=== PATIENT | male | born 1945 | race African-American/Black ===

== ENCOUNTER 2017-01-07 09:26 | Emergency (ER) | payer OTHER ==
[~2017-01-07] VITALS: Ht 172.7 cm; Wt 79.2 kg
[~2017-01-07 09:26] MED LIST: ATEN-100 PO; BABY81CH PO; CIPR500T2 PO; SPIR25TA PO
[2017-01-07 09:36] VITALS: BP 150/80; PULSE 98; RESP 16; TEMP 98.3; O2SAT 97
--- NOTE | 2017-01-07 09:42 | PD ---
HPI Chief Complaint: Musculoskeletal Complaint Time Seen by Provider: 09:31 Travel History International Travel<30 days: No Contact w/Intl Traveler<30days: No Traveled to known affect area: No History of Present Illness HPI PER PATIENT APPARENTLY LEFT FOOT WAS PLANTED WHEN HIS BODY TWISTED ABOUT, NO MAJOR BLUNT TRAUMA, BUT SINCE THAT TWISTING KNEE INCIDENT HE HAS HAD PAIN, SHARP , NONRAD, 01/09 , WORSENED WITH WEIGHT BEARING, ON HIS LEFT KNEE (HE HAD TONE KNEE REPLACEMENT IN 2003). NO OTHER COMPLAINT AT THIS TIME [facility] Past Medical History Hypertension: Yes Past Surgical History Abdominal Surgery: Yes (HERNIA REPAIR) Social History Alcohol Use: No Tobacco Use: No Substance Use: No Allergies-Medications (Allergen,Severity, Reaction): Coded Allergies: No Known Allergies (Verified , 01/07/17) Reported Meds & Prescriptions Reported Meds & Active Scripts Active Lortab (Hydrocodone-Acetaminophen) 7.5-325 Mg Tab 1 Tab PO Q6H PRN Reported Magnesium Oxide 400 Mg Tab 400 Mg PO DAILY Vitamin D3 (Cholecalciferol) 2,000 Unit Cap 2,000 Units PO DAILY Calcium Carbonate 1,250 Mg Tab 1,250 Mg PO DAILY 1,250 mg calcium carbonate (500 mg elemental calcium) Spironolactone 50 Mg Tab 50 Mg PO DAILY Lisinopril 40 Mg Tab 50 Mg PO DAILY Carvedilol 6.25 Mg Tab 6.25 Mg PO BID Aspirin 81 Mg Chew 81 Mg CHEW DAILY Review of Systems Except as stated in HPI: all other systems reviewed are Neg Musculoskeletal: Positive: Pain Physical Exam Narrative GENERAL: SKIN: Warm and dry. HEAD: Atraumatic. Normocephalic. EYES: Pupils equal and round. No scleral icterus. No injection or drainage. ENT: No nasal bleeding or discharge. Mucous membranes pink and moist. NECK: Trachea midline. No JVD. CARDIOVASCULAR: Regular rate and rhythm. RESPIRATORY: No accessory muscle use. Clear to auscultation. Breath sounds equal bilaterally. GASTROINTESTINAL: Abdomen soft, non-tender, nondistended. Hepatic and splenic margins not palpable. MUSCULOSKELETAL: Extremities without clubbing, cyanosis, or edema. No obvious deformities. THERE'S MILD EDEMA TO LEFT KNEE LOCALLY, NO CELLULITIC CHANGES, PATIENT IS ABLE TO FLEX/EXTEND FULLY, NO APPARENT DISLOCATION NEUROLOGICAL: Awake and alert. No obvious cranial nerve deficits. Motor grossly within normal limits. Five out of 5 muscle strength in the arms and legs. Normal speech. PSYCHIATRIC: Appropriate mood and affect; insight and judgment normal. Data Data Last Documented VS Vital Signs Date Time Temp Pulse Resp B/P Pulse Ox O2 Delivery O2 Flow Rate FiO2 01/07/17 10:36 18 01/07/17 09:36 98.3 98 150/80 97 Orders Knee, Complete (4vws) (01/07/17 ) Ketorolac Inj (Toradol Inj) (01/07/17 09:45) MDM Medical Decision Making Medical Screen Exam Complete: Yes Emergency Medical Condition: Yes Medical Record Reviewed: Yes Differential Diagnosis FX V DISLOCATION V PROSTHETIC DISLODGEMENT V CONTUSION Narrative Course XRAY DID NOT SHOW ANY MANNY PROSTHESIS INJURY, NO FX, NO DISLOCATION...WILL BE D/ C Diagnosis Primary Impression: Knee pain, acute Qualified Code: M25.562 - Acute pain of left knee Scripts Hydrocodone-Acetaminophen (Lortab)7.5-325 Mg Tab1 Tab PO Q6H PRN (PAIN) #20 TAB Prov:Osmel Guardado MD 01/07/17 Disposition: 01 DISCHARGE HOME Condition: Stable Osmel Guardado MD Jan 07, 2017 09:42 Osmel Guardado MD Jan 07, 2017 09:42
[2017-01-07] MEDS ORDERED: KETOROLAC TROMETHAMINE 60 MG/2 ML (IM) VIAL IM ONE (09:45)
[2017-01-07] MEDS ORDERED: SPIR50TA PO (09:51)
[2017-01-07] MEDS ORDERED: CALC12502 PO (09:51)
[2017-01-07] MEDS ORDERED: VITA2000 PO (09:51)
[2017-01-07] MEDS ORDERED: CARV6.252 PO (09:51)
[2017-01-07] MEDS ORDERED: MAGN400T2 PO (09:51)
[2017-01-07] MEDS ORDERED: ASPI81CH CHEW (09:51)
[2017-01-07] MEDS ORDERED: LISI40TA PO (09:51)
--- NOTE | 2017-01-07 10:34 | RADRPT ---
EXAM DATE/TIME: 01/07/2017 09:45 [place] COMPARISON: No previous studies available for comparison. INDICATIONS : Patient states no known injury. Pain in left knee that radiates up to the hip for three days. MEDICAL HISTORY : Hypertension. SURGICAL HISTORY : Total knee replacement, left. Total knee replacement, right. Hiatal hernia. Rt rotator cuff repair. ENCOUNTER: Initial ACUITY: 3 days PAIN SCORE: 9/10 LOCATION: Left Knee FINDINGS: Four view examination of the left knee demonstrates no evidence of fracture or dislocation. The knee prosthesis appears to be in good position alignment of the bony structures. No joint effusion is seen . Bony mineralization is normal. The articular surfaces are intact. The suprapatellar soft tissues have a normal configuration. CONCLUSION: The bony structures are grossly intact. Good position and alignment of the knee prosthesis. Rj Miller MD on January 07, 2017 at 10:28 Board Certified Radiologist. This report was verified electronically.
[2017-01-07 10:36] VITALS: RESP 18
[2017-01-07] MEDS ORDERED: HYDR-3534 PO (10:41)
== END 2017-01-07 10:50 | disposition home or self-care (01) ==
LOC: PHED 09:26
DX: M25.562 Pain in left knee (principal); Z96.653 Presence of artificial knee joint, bilateral; X50.1XXA Overexertion from prolonged static or awkward postures, initial encounter; Y99.8 Other external cause status
CPT/HCPCS: 73564; 96372; 99284; J1885

== ENCOUNTER 2017-03-27 07:15 | Day surgery (SDC) | payer OTHER ==
[~2017-03-27] VITALS: Ht 172.7 cm; Wt 79.6 kg
[~2017-03-27 07:15] MED LIST changes: +ASPI81CH CHEW; -ATEN-100 PO; -BABY81CH PO; +CALC12502 PO; +CARV6.252 PO; -CIPR500T2 PO; +HYDR-3534 PO; +LISI40TA PO; +MAGN400T2 PO; -SPIR25TA PO; +SPIR50TA PO; +VITA2000 PO
[2017-03-27] MEDS ORDERED: IOHEXOL 350 MG/ML 100 ML BTL (for Cath Lab) OTHER ONE (07:16)
[2017-03-27] MEDS ORDERED: PROSCAP (08:13)
[2017-03-27] MEDS ORDERED: MULTTAB67 PO (08:13)
[2017-03-27] MEDS ORDERED: OMEGCAP PO (08:13)
[2017-03-27 08:14] VITALS: BP 123/86; PULSE 91; RESP 17; TEMP 97.9; O2SAT 97
[2017-03-27 08:44] LABS: AUTOMATED NEUTROPHIL # 4.9 TH/MM3 (1.8-7.7); BASOPHIL % 0.3 % (0.0-2.0); EOSINOPHIL # 0.1 TH/MM3 (0-0.4); EOSINOPHIL % 1.6 % (0.0-4.0); HEMATOCRIT 40.8 % (39.0-51.0); HEMOGLOBIN 13.8 GM/DL (13.0-17.0); LYMPH % 34.1 % (9.0-44.0); MEAN CELL VOLUME 84.7 FL (80.0-100.0); MEAN CORPUSCULAR HEMOGLOBIN 28.7 PG (27.0-34.0); MEAN CORPUSCULAR HGB CONC 33.9 % (32.0-36.0); MEAN PLATELET VOLUME 7.1 FL (7.0-11.0); MONO % 8.5 % (0.0-8.0); MONOCYTE # 0.8 TH/MM3 (0-0.9); NEUT % 55.5 % (16.0-70.0); PLATELET COUNT 333 TH/MM3 (150-450); RED BLOOD COUNT 4.82 MIL/MM3 (4.50-5.90); RED CELL DISTRIBUTION WIDTH 14.7 % (11.6-17.2); WHITE BLOOD COUNT 8.9 TH/MM3 (4.0-11.0)
[2017-03-27] MEDS ORDERED: NS 1000P @30 MLS/HR (KVO) IV SCH (09:00)
[2017-03-27 09:03] LABS: PROTHROMBIN TIME - PATIENT 11.5 SEC (9.8-11.6)
[2017-03-27 09:11] LABS: BICARBONATE 27.8 MEQ/L (21.0-32.0); CALCIUM 9.9 MG/DL (8.5-10.1); CREATININE 0.65 MG/DL (0.60-1.30)
[2017-03-27] MEDS ORDERED: HEPARIN-NS/PF INJ 1,000 ML ONE (09:32)
[2017-03-27] MEDS ORDERED: MIDAZOLAM HCL 2 MG/2 ML VIAL ONE (09:33)
[2017-03-27] MEDS ORDERED: HEPARIN SODIUM - IV 10,000 UNITS/10 ML VIAL ONE (09:33)
[2017-03-27] MEDS ORDERED: VERAPAMIL HCL 5 MG/2 ML VIAL ONE (09:33)
[2017-03-27] MEDS ORDERED: NITROGLYCERIN INJ 5 ML ONE (09:35)
[2017-03-27] MEDS ORDERED: ADENOSINE STRESS TEST INJ 90 MG/30 ML VIAL ONE (10:19)
--- NOTE | 2017-03-27 10:39 | CATHPROC ---
[facility] Social HIS Report Study Information Study Number Admission Scheduled Start Study Start [id number] Mar 27 2017 7:15AM 03/27/2017 Mar 27 2017 9:14AM [place] [facility] Cardiac Catheterization Admit Source Facility Department Other [facility] - [employer] Physician and Clinical Staff Initial Wilfredo Atkins Cst Sally Barajas,BETH Cst Boni Robles,RN Recorder Dipika Rowe,RT(R) (BS) Scrub Jack GallardoRT(R) Procedures Performed Procedure Location (Site) Vessel Name Coronary Angiograms LCA Left Coronary Coronary Angiograms RCA Right Coronary L Heart Cath Wire insertion Radial (right) Radial Art. Equipment Time Volleyball Commentator Description Size Mfg Part Number Used/Scraped TRANSDUCER, TRUWAVE [id number] 09:15 PORTER TRENT * Used W/STOCKCOCK *[id number] [id number] *[id number] [id number] *[id number] 09:15 [employer] PACK, CCL CUSTOM * Used *[id number] 09:15 [employer] SUPPORT, ARTERIAL ADULT 32024 *[id number] Used BAND, RADIAL COMPRESSION TR [id number] 10:26 [employer] MEDICAL 24CM Used SHORT 24 *[id number] 09:15 [employer] MEDICAL WIRE, EXCHANGE 260CM 3MMJ 260CM Used *[id number] 09:15 NAMIC MANIFOLD, 4 PORT * Used *[id number] 09:15 [employer] OMNIPAQUE, 350 MG, 150ML 150ML [id number] Used [id number] 09:15 [employer] MED[employer] BLANKET,WARM AIR CCL * Used *[id number] SHEATH, FR6 TRANSRADIAL RM*[id number] 09:15 [email or web address] FR 6 Used SLENDER 10CM *[id number] 10:05 [employer] PRIME WIRE, VERRATA 185CM 185CM [id number] *[id number] Used 10:13 [employer] PRIME WIRE, VERRATA 185CM 185CM [id number] *[id number] Used Equipment Model, Serial, Lot Number and Expiration Data Description Model Number Serial Number Lot Number Expiration Date PRIME WIRE, VERRATA 185CM [id number] 03-01-2020 History: Current Medications Medication Dosage/Unit Route Frequency Last Date/Time Taken Beta Irma ASA LISINOPRIL History: Allergies Allergy Reaction No Known Allergies History: Risk Factors Family History of Hypertension Dyslipidemia Previous MT Previous Heart Failure Premature CAD Yes Yes Yes No No Prior Valve Prior PCI Prior CABG Surgery No No No Cerebrovascular Peripheral Artery Chronic Lung On Dialysis Diabetes Disease Disease Disease No No No No No History: Stress Tests Stress or Imaging Studies Performed Yes Standard Exercise Stress Test No Stress Echo No Stress Test SPECT Stress Test SPECT Result Yes Positive Stress Test CMR No Cardiac CTA Coronary Calcium Score No No History: Other Current Smoker No Labs Hgb (g/dl) Hct (%) WBC (l/cumm) Platelets (thousands) 11.60-17.00 35.00-51.00 4.00-11.00 150.00-450.00 13.8 40.8 8.9 333 Glucose (mg/dl) BUN (mg/dl) Creatinine (mg/dl) BUN:Creatinine (1:x) 74.00-106.00 7.00-18.00 0.50-1.30 10.00-20.00 104 10 0.6 16.7 Na (meq/l) K (meq/l) 136.00-145.00 3.50-5.10 134 3.8 INR (PTT:PT) 0.90-1.10 1 CPK-MB (ng/ML) 0.50-3.60 Not Drawn Medication Medication Total Dose (Bolus/Oral) Medication Total Dosage/Unit 1% XYLOCAINE 1 mL FENTANYL 25 mcg HEPARIN 4800 units RADIAL COCKTAIL 1 units VERSED 0.5 mg Medications (Bolus/Oral) Medication Time Given Dosage/Unit Administered By Reason VERSED 03/27/2017 9:47:30 AM 0.5 mg Sally Barajas 0.5 mg VERSED given in lab by Sally Barajas RN in Left Forearm via Peripheral IV. FENTANYL 03/27/2017 9:48:41 AM 25 mcg Sally Barajas 25 mcg FENTANYL given in lab by Sally Barajas, BETH in Left Forearm via Peripheral IV. 1% XYLOCAINE 03/27/2017 9:48:47 AM 1 mL Wilfredo Wilhelm 1 mL 1% XYLOCAINE given in lab by Wilfredo Wilhelm in Right Radial via Subcutaneous. Ntg 200mcg Verapamil 2.5mg Heparin RADIAL COCKTAIL 03/27/2017 9:50:26 AM 1 units Wilfredo Wilhelm 2000U 1 units RADIAL COCKTAIL given in lab by Wilhelm, Vincent G in Right Radial via Radial. Reason: Ntg 2 00mcg Verapamil 2.5mg Heparin 3200U. 03/27/2017 10:05:46 HEPARIN 4800 units Boni Robles AM 4800 units HEPARIN given in lab by Boni Robles RN in Left Forearm via Peripheral IV. Medication (Drip) Medication Time Given Dosage/Unit Concentration/Unit Diluent (ml) Solution 03/27/2017 10:22:26 ADENOSINE DRIP 139.866 mcg/kg/min 90 mg 90 NaCl .9 AM 139.866 mcg/kg/min ADENOSINE DRIP given in lab by Boni Robles RN via Peripheral IV. Pump/Drip Flow = 668 ml/hr using NaCl .9 with a concentration of 90 mg in 90 ml. ADENOSINE DRIP 03/27/2017 10:24:32 0 units/hr 0 STOPPED AM 0 units/hr ADENOSINE DRIP STOPPED given in lab by Boni Robles RN. Pump/Drip Flow = 0 ml/hr using [ Solution Name]. IV Solutions 03/27/2017 9:22:21 AM 0 mL (IV) 500 NaCl .9 IV Solutions given in lab by Sally Barajas RN in Left Forearm via Peripheral IV. Pump/Drip Flow = 100 ml/hr using NaCl .9. Initial Case Assessment Cardiovascular HR Rhythm NIBP Chest Pain 80 reg 138/82 0 Edema Present Skin color Skin None Normal Warm Dry Circulatory - Right Pulses Dorsalis Pedis Femoral 3 3 Scale (0,1,2,3,4,d) Circulatory - Left Pulses Dorsalis Pedis Femoral 3 3 Scale (0,1,2,3,4,d) Circulatory - Lower Extremities Color Lower Right Color Lower Left Normal Normal Neurological State Oriented to time-place- Alert Moves all extremities person Respiration - General Respiration Rate SpO2 (%) (B/min) 8 97 Chronological Log Time Study Chronological Log 9:22:03 Patient arrived via Bed. 9:22:04 Patient Name, D.O.B, / Armband Verified By R.N. 9:22:05 Consent signed by the physician and the patient and verified by the [employer] staff. 9:22:06 Pre-op and post- op instructions given; patient acknowledges understanding of instructions. 9:22:07 Verbal Stimulation=2 Physical Stimulation=2 Airway=2 Respiration=2 TOTAL=8. (0=absent, 1=li mited, 2=present) 9:22:09 Presedation assessment performed by [employer] RN. 9:22:12 Allens test performed on the right radial and ulnar artery per Dr Wilhelm 9:22:15 Patient has been NPO for More than 6Hrs. 9:22:16 Skin Breakdown none per pt 9:22:17 Patient Warmer Placed on the Table. 9:22:20 Aga Prominences Protected 9:22:21 A # 20 IV was noted in the Forearm (left). Grade = 0 IV Solutions given in lab by Sally Barajas, RN in Left Forearm via Peripheral IV. Pump/Drip F low = 100 ml/hr using 9:22:21 NaCl .9. 9:22:22 History and physical on the chart or being dictated. Assessment: Initial Case, HR=80 BPM, Rhythm=reg, TLFK=788/82 mmhg, Chest Pain=0, Edema=None, Co elyse=Normal, Skin = Warm, Dry Right Pulses: Abdiaziz Ped=3, Femoral=3 Left Pulses: Abdiaziz Ped=3, Femoral=3 9:22:23 Lower Right Extremities: Color=Normal Lower Left Extremities: Color=Normal Neurological: State=Alert, Ox3, [place]AB[place] Respiration: Resp=8 B/min, SpO2=97 % Vitals capture started with the following parameters, Patient=Adult, Interval=5 min, Initial Pr knyzjz=335 mmHg, 9:26:56 Deflation Rate=5 mmHg, Cuff placed on Right Arm 9:28:00 PELM=754/82 mmhg, SpO2=96.0 %, Pain=0, Courtney=10, Lundy=2 9:32:30 HR=82 bpm, ANPH=987/83 mmhg, SpO2=97.0 %, Resp=16 B/min, Pain=0, Courtney=10, Lundy=2 9:35:09 Bilateral groins prepped with 2% chlorhexidine, and draped after a 3 minute waiting time. 9:37:27 HR=84 bpm, BHGD=707/93 mmhg, SpO2=97.0 %, Resp=20 B/min, Pain=0, Courtney=10, Lundy=2 9:39:36 MD paged 9:40:45 MD responded 9:42:30 HR=84 bpm, MAOA=266/81 mmhg, SpO2=94.0 %, Resp=17 B/min, Pain=0, Courtney=10, Lundy=2 9:43:57 Pressure channel 1 zeroed. 9:47:08 Reference ECG taken 9:47:29 HR=83 bpm, PICF=992/80 mmhg, SpO2=93.0 %, Resp=20 B/min, Pain=0, Courtney=10, Lundy=2 9:47:30 0.5 mg VERSED given in lab by Sally Barajas, BETH in Left Forearm via Peripheral IV. Time Out. Correct patient, correct procedure, correct physician, power not loaded with contrast with surgical team 9:47:58 present. Time Out Concurred by MD and individual staff in procedure. 9:48:17 Case Start 9:48:41 25 mcg FENTANYL given in lab by Sally Barajas, BETH in Left Forearm via Peripheral IV. 9:48:47 1 mL 1% XYLOCAINE given in lab by Wilfredo Wilhelm in Right Radial via Subcutaneous. 9:50:01 Access site was right Radial Artery. A SHEATH, FR6 TRANSRADIAL SLENDER 10CM FR 6 was advanced into the Radial (right) using the Perc utaneous 9:50:16 technique. 1 units RADIAL COCKTAIL given in lab by Wilrfedo Wilhelm in Right Radial via Radial. Reason: Ntg 200mcg 9:50:26 Verapamil 2.5mg Heparin 3200U. A JR 4.0 INFINITI CATHETER FR 5 was advanced over a wire. OMNIPAQUE, 350 MG, 150ML 150ML was us ed for 9:50:50 injections. Recorded Pressure: LV, HR=90, Condition=Condition 1 9:52:06 (Left Ventricle) LV 115/-1/8 Recorded Pressure: LV, Ao, HR=94, Condition=Condition 1 9:52:20 (Left Ventricle) LV 113/-4/4, (Aorta) Ao 113/62/87 9:52:30 HR=90 bpm, FNPK=017/76 mmhg, SpO2=92.0 %, Resp=19 B/min, Pain=0, Courtney=10, Lundy=2 Recorded Pressure: Ao, HR=93, Condition=Condition 1 9:53:15 (Aorta) Ao 108/77/92 9:53:22 The RCA was injected and visualized at various angles. OMNIPAQUE, 350 MG, 150ML 150ML used. After removing the current catheter a JL 3.5 INFINITI CATHETER FR 5 was advanced over a WIRE, E XCHANGE 260CM 9:54:41 3MMJ 260CM. 9:55:59 The LCA was injected and visualized at various angles. OMNIPAQUE, 350 MG, 150ML 150ML used. 9:57:27 HR=88 bpm, YPPK=468/77 mmhg, Resp=20 B/min, Pain=0, Courtney=10, Lundy=2 10:02:28 HR=82 bpm, MIJS=196/78 mmhg, Resp=16 B/min, Pain=0, Courtney=10, Lundy=2 10:04:39 Catheter was removed 10:05:46 4800 units HEPARIN given in lab by Boni Robles, RN in Left Forearm via Peripheral IV. 10:07:29 HR=86 bpm, ODSC=565/86 mmhg, SpO2=98.0 %, Resp=20 B/min, Pain=0, Courtney=10, Lundy=2 10:10:23 A PRIME WIRE, VERRATA 185CM 185CM was inserted via Radial (right). 10:12:28 HR=84 bpm, KLJY=002/81 mmhg, SpO2=98.0 %, Resp=18 B/min, Pain=0, Courtney=10, Lundy=2 10:17:27 HR=80 bpm, ETXJ=056/86 mmhg, SpO2=98.0 %, Resp=19 B/min, Pain=0, Courtney=10, Lundy=2 10:18:20 Flow Wire was was placed in the LAD Mid. The IFR measures 0.91 Percent. 139.866 mcg/kg/min ADENOSINE DRIP given in lab by Boni Robles, RN via Peripheral IV. Pump/Dri p Flow = 668 ml/hr 10:22:26 using NaCl .9 with a concentration of 90 mg in 90 ml. 10:22:33 HR=81 bpm, ORTI=649/84 mmhg, SpO2=99.0 %, Resp=20 B/min, Pain=0, Courtney=10, Lundy=2 10:24:26 Flow Wire was was placed in the LAD Mid. The FFR measures 0.83 percent. 0 units/hr ADENOSINE DRIP STOPPED given in lab by Boni Robles, RN. Pump/Drip Flow = 0 ml/hr u sing [Solution 10:24:32 Name]. 10:25:35 Wire removed 10:26:10 A WIRE, EXCHANGE 260CM 3MMJ 260CM was inserted via Radial (right). 10:26:20 Catheter was removed 10:26:21 Wire removed 10:27:34 HR=89 bpm, XXWD=330/80 mmhg, Resp=23 B/min, Pain=0, Courtney=10, Lundy=2 10:27:40 Case End 10:27:50 Catheter(s) removed without difficulty Radial Compression Device Used. 10 mLs of air placed in BAND, RADIAL COMPRESSION TR SHORT 24 24 CM. Affected 10:27:53 hand 97 % O2 saturation. 10:28:08 No case complications noted. 10:28:17 Cine recording checked. 10:28:19 Bedside Report will be given. 10:28:22 Contrast Scanned 10:28:24 A Left Heart Cath was performed. 10:29:55 DOCU called. Spoke to Pooja. 10:32:29 HR=84 bpm, MTIQ=037/90 mmhg, SpO2=97.0 %, Resp=15 B/min, Pain=0, Courtney=10, Lundy=2 10:35:21 Vitals capture stopped. 10:36:50 [facility] - Cont[facility] Media Used In Study Contrast Total Opened (mL) Total Used (mL) Total Wasted (mL) Omnipaque 55 55 0 End Study - Maximum Contrast Load Max Contrast Load (mL) 663.3 End Study - Radiation Exposure Fluoro Time (minutes) 6.4 End Study - Sheaths Sheaths Pulled By Sheath Hold Time (min) Jack Gallardo End Study - Patient Disposition Complications Transferred To Interventional Outcome No [employer] Holding No attempt made
--- NOTE | 2017-03-27 10:39 | CATHPROC ---
[employer] HIS Report Study Information Study Number Admission Scheduled Start Study Start [id number] Mar 27 2017 7:15AM 03/27/2017 Mar 27 2017 9:14AM [place] [facility] Cardiac Catheterization Admit Source Facility Department Other [facility] - Cupola Operator Physician and Clinical Staff Initial Wilfredo Atkins Embedder Sally Barajas,BETH Embedder Boni Robles,RN Recorder Dipika Rowe,RT(R) (BS) Scrub Jack GallardoRT(R) Procedures Performed Procedure Location (Site) Vessel Name Coronary Angiograms LCA Left Coronary Coronary Angiograms RCA Right Coronary L Heart Cath Wire insertion Radial (right) Radial Art. Equipment Time [employer] [place] Description Size Mfg Part Number Used/Scraped TRANSDUCER, TRUWAVE [id number] 09:15 PORTER TRENT * Used W/STOCKCOCK *[id number] *[id number] [id number] *[id number] 09:15 [employer] PACK, CCL CUSTOM * Used *[id number] 09:15 [employer] SUPPORT, ARTERIAL ADULT 10095 *[id number] Used BAND, RADIAL COMPRESSION TR [id number] 10:26 [employer] MEDICAL 24CM Used SHORT 24 *[id number] 09:15 [employer] MEDICAL WIRE, EXCHANGE 260CM 3MMJ 260CM Used *[id number] 09:15 NAMIC MANIFOLD, 4 PORT * Used *[id number] 09:15 NYCOMED OMNIPAQUE, 350 MG, 150ML 150ML [id number] Used [id number] 09:15 [employer] MEDICAL BLANKET,WARM AIR CCL * Used *[id number] SHEATH, FR6 TRANSRADIAL [id number] 09:15 [employer] FR 6 Used SLENDER 10CM *[id number] 10:05 [employer]OLCANO PRIME WIRE, VERRATA 185CM 185CM 24394 *[id number] Used 10:13 [employer] PRIME WIRE, VERRATA 185CM 185CM 61552 *[id number] Used Equipment Model, Serial, Lot Number and Expiration Data Description Model Number Serial Number Lot Number Expiration Date PRIME WIRE, VERRATA 185CM [id number] 03-01-2020 History: Current Medications Medication Dosage/Unit Route Frequency Last Date/Time Taken Beta Irma ASA LISINOPRIL History: Allergies Allergy Reaction No Known Allergies History: Risk Factors Family History of Hypertension Dyslipidemia Previous PR Previous Heart Failure Premature CAD Yes Yes Yes No No Prior Valve Prior PCI Prior CABG Surgery No No No Cerebrovascular Peripheral Artery Chronic Lung On Dialysis Diabetes Disease Disease Disease No No No No No History: Stress Tests Stress or Imaging Studies Performed Yes Standard Exercise Stress Test No Stress Echo No Stress Test SPECT Stress Test SPECT Result Yes Positive Stress Test CMR No Cardiac CTA Coronary Calcium Score No No History: Other Current Smoker No Labs Hgb (g/dl) Hct (%) WBC (l/cumm) Platelets (thousands) 11.60-17.00 35.00-51.00 4.00-11.00 150.00-450.00 13.8 40.8 8.9 333 Glucose (mg/dl) BUN (mg/dl) Creatinine (mg/dl) BUN:Creatinine (1:x) 74.00-106.00 7.00-18.00 0.50-1.30 10.00-20.00 104 10 0.6 16.7 Na (meq/l) K (meq/l) 136.00-145.00 3.50-5.10 134 3.8 INR (PTT:PT) 0.90-1.10 1 CPK-MB (ng/ML) 0.50-3.60 Not Drawn Medication Medication Total Dose (Bolus/Oral) Medication Total Dosage/Unit 1% XYLOCAINE 1 mL FENTANYL 25 mcg HEPARIN 4800 units RADIAL COCKTAIL 1 units VERSED 0.5 mg Medications (Bolus/Oral) Medication Time Given Dosage/Unit Administered By Reason VERSED 03/27/2017 9:47:30 AM 0.5 mg Sally Barajas 0.5 mg VERSED given in lab by Sally Barajas RN in Left Forearm via Peripheral IV. FENTANYL 03/27/2017 9:48:41 AM 25 mcg Sally Barajas 25 mcg FENTANYL given in lab by Sally Barajas, BETH in Left Forearm via Peripheral IV. 1% XYLOCAINE 03/27/2017 9:48:47 AM 1 mL Wilfredo Wilhelm 1 mL 1% XYLOCAINE given in lab by Wilfredo Wilhelm in Right Radial via Subcutaneous. Ntg 200mcg Verapamil 2.5mg Heparin RADIAL COCKTAIL 03/27/2017 9:50:26 AM 1 units Wilfredo Wilhelm 2000U 1 units RADIAL COCKTAIL given in lab by Wilhelm, Vincent G in Right Radial via Radial. Reason: Ntg 2 00mcg Verapamil 2.5mg Heparin 3200U. 03/27/2017 10:05:46 HEPARIN 4800 units Boni Robles AM 4800 units HEPARIN given in lab by Boni Robles RN in Left Forearm via Peripheral IV. Medication (Drip) Medication Time Given Dosage/Unit Concentration/Unit Diluent (ml) Solution 03/27/2017 10:22:26 ADENOSINE DRIP 139.866 mcg/kg/min 90 mg 90 NaCl .9 AM 139.866 mcg/kg/min ADENOSINE DRIP given in lab by Boni Robles RN via Peripheral IV. Pump/Drip Flow = 668 ml/hr using NaCl .9 with a concentration of 90 mg in 90 ml. ADENOSINE DRIP 03/27/2017 10:24:32 0 units/hr 0 STOPPED AM 0 units/hr ADENOSINE DRIP STOPPED given in lab by Boni Robles RN. Pump/Drip Flow = 0 ml/hr using [ Solution Name]. IV Solutions 03/27/2017 9:22:21 AM 0 mL (IV) 500 NaCl .9 IV Solutions given in lab by Sally Barajas RN in Left Forearm via Peripheral IV. Pump/Drip Flow = 100 ml/hr using NaCl .9. Initial Case Assessment Cardiovascular HR Rhythm NIBP Chest Pain 80 reg 138/82 0 Edema Present Skin color Skin None Normal Warm Dry Circulatory - Right Pulses Dorsalis Pedis Femoral 3 3 Scale (0,1,2,3,4,d) Circulatory - Left Pulses Dorsalis Pedis Femoral 3 3 Scale (0,1,2,3,4,d) Circulatory - Lower Extremities Color Lower Right Color Lower Left Normal Normal Neurological State Oriented to time-place- Alert Moves all extremities person Respiration - General Respiration Rate SpO2 (%) (B/min) 8 97 Chronological Log Time Study Chronological Log 9:22:03 Patient arrived via Bed. 9:22:04 Patient Name, D.O.B, / Armband Verified By R.N. 9:22:05 Consent signed by the physician and the patient and verified by the Cupola Operator staff. 9:22:06 Pre-op and post- op instructions given; patient acknowledges understanding of instructions. 9:22:07 Verbal Stimulation=2 Physical Stimulation=2 Airway=2 Respiration=2 TOTAL=8. (0=absent, 1=li mited, 2=present) 9:22:09 Presedation assessment performed by Cupola Operator RN. 9:22:12 Allens test performed on the right radial and ulnar artery per Dr Wilhelm 9:22:15 Patient has been NPO for More than 6Hrs. 9:22:16 Skin Breakdown none per pt 9:22:17 Patient Warmer Placed on the Table. 9:22:20 Aga Prominences Protected 9:22:21 A # 20 IV was noted in the Forearm (left). Grade = 0 IV Solutions given in lab by Sally Barajas, RN in Left Forearm via Peripheral IV. Pump/Drip F low = 100 ml/hr using 9:22:21 NaCl .9. 9:22:22 History and physical on the chart or being dictated. Assessment: Initial Case, HR=80 BPM, Rhythm=reg, LEOE=598/82 mmhg, Chest Pain=0, Edema=None, Co elyse=Normal, Skin = Warm, Dry Right Pulses: Abdiaziz Ped=3, Femoral=3 Left Pulses: Abdiaziz Ped=3, Femoral=3 9:22:23 Lower Right Extremities: Color=Normal Lower Left Extremities: Color=Normal Neurological: State=Alert, Ox3, SABILLON Respiration: Resp=8 B/min, SpO2=97 % Vitals capture started with the following parameters, Patient=Adult, Interval=5 min, Initial Pr qorvbb=901 mmHg, 9:26:56 Deflation Rate=5 mmHg, Cuff placed on Right Arm 9:28:00 DNAJ=103/82 mmhg, SpO2=96.0 %, Pain=0, Courtney=10, Lundy=2 9:32:30 HR=82 bpm, UFGF=209/83 mmhg, SpO2=97.0 %, Resp=16 B/min, Pain=0, Courtney=10, Lundy=2 9:35:09 Bilateral groins prepped with 2% chlorhexidine, and draped after a 3 minute waiting time. 9:37:27 HR=84 bpm, DATW=350/93 mmhg, SpO2=97.0 %, Resp=20 B/min, Pain=0, Courtney=10, Lundy=2 9:39:36 MD paged 9:40:45 MD responded 9:42:30 HR=84 bpm, PKVE=658/81 mmhg, SpO2=94.0 %, Resp=17 B/min, Pain=0, Courtney=10, Lundy=2 9:43:57 Pressure channel 1 zeroed. 9:47:08 Reference ECG taken 9:47:29 HR=83 bpm, GKEW=493/80 mmhg, SpO2=93.0 %, Resp=20 B/min, Pain=0, Courtney=10, Lundy=2 9:47:30 0.5 mg VERSED given in lab by Sally Barajas, BETH in Left Forearm via Peripheral IV. Time Out. Correct patient, correct procedure, correct physician, power not loaded with contrast with surgical team 9:47:58 present. Time Out Concurred by MD and individual staff in procedure. 9:48:17 Case Start 9:48:41 25 mcg FENTANYL given in lab by Sally Barajas, BETH in Left Forearm via Peripheral IV. 9:48:47 1 mL 1% XYLOCAINE given in lab by Wilfredo Wilhelm in Right Radial via Subcutaneous. 9:50:01 Access site was right Radial Artery. A SHEATH, FR6 TRANSRADIAL SLENDER 10CM FR 6 was advanced into the Radial (right) using the Perc utaneous 9:50:16 technique. 1 units RADIAL COCKTAIL given in lab by Wilfredo Wilhelm in Right Radial via Radial. Reason: Ntg 200mcg 9:50:26 Verapamil 2.5mg Heparin 3200U. A JR 4.0 INFINITI CATHETER FR 5 was advanced over a wire. OMNIPAQUE, 350 MG, 150ML 150ML was us ed for 9:50:50 injections. Recorded Pressure: LV, HR=90, Condition=Condition 1 9:52:06 (Left Ventricle) LV 115/-1/8 Recorded Pressure: LV, Ao, HR=94, Condition=Condition 1 9:52:20 (Left Ventricle) LV 113/-4/4, (Aorta) Ao 113/62/87 9:52:30 HR=90 bpm, XCYD=005/76 mmhg, SpO2=92.0 %, Resp=19 B/min, Pain=0, Courtney=10, Lundy=2 Recorded Pressure: Ao, HR=93, Condition=Condition 1 9:53:15 (Aorta) Ao 108/77/92 9:53:22 The RCA was injected and visualized at various angles. OMNIPAQUE, 350 MG, 150ML 150ML used. After removing the current catheter a JL 3.5 INFINITI CATHETER FR 5 was advanced over a WIRE, E XCHANGE 260CM 9:54:41 3MMJ 260CM. 9:55:59 The LCA was injected and visualized at various angles. OMNIPAQUE, 350 MG, 150ML 150ML used. 9:57:27 HR=88 bpm, IPVU=015/77 mmhg, Resp=20 B/min, Pain=0, Courtney=10, Lundy=2 10:02:28 HR=82 bpm, LXNE=225/78 mmhg, Resp=16 B/min, Pain=0, Courtney=10, Lundy=2 10:04:39 Catheter was removed 10:05:46 4800 units HEPARIN given in lab by Boni Robles, RN in Left Forearm via Peripheral IV. 10:07:29 HR=86 bpm, YNMM=774/86 mmhg, SpO2=98.0 %, Resp=20 B/min, Pain=0, Courtney=10, Lundy=2 10:10:23 A PRIME WIRE, VERRATA 185CM 185CM was inserted via Radial (right). 10:12:28 HR=84 bpm, YGMX=066/81 mmhg, SpO2=98.0 %, Resp=18 B/min, Pain=0, Courtney=10, Lundy=2 10:17:27 HR=80 bpm, JJQB=829/86 mmhg, SpO2=98.0 %, Resp=19 B/min, Pain=0, Courtney=10, Lundy=2 10:18:20 Flow Wire was was placed in the LAD Mid. The IFR measures 0.91 Percent. 139.866 mcg/kg/min ADENOSINE DRIP given in lab by Boni Robles, RN via Peripheral IV. Pump/Dri p Flow = 668 ml/hr 10:22:26 using NaCl .9 with a concentration of 90 mg in 90 ml. 10:22:33 HR=81 bpm, VTIT=661/84 mmhg, SpO2=99.0 %, Resp=20 B/min, Pain=0, Courtney=10, Lundy=2 10:24:26 Flow Wire was was placed in the LAD Mid. The FFR measures 0.83 percent. 0 units/hr ADENOSINE DRIP STOPPED given in lab by Boni Robles, RN. Pump/Drip Flow = 0 ml/hr u sing [Solution 10:24:32 Name]. 10:25:35 Wire removed 10:26:10 A WIRE, EXCHANGE 260CM 3MMJ 260CM was inserted via Radial (right). 10:26:20 Catheter was removed 10:26:21 Wire removed 10:27:34 HR=89 bpm, GMSQ=432/80 mmhg, Resp=23 B/min, Pain=0, Courtney=10, Lundy=2 10:27:40 Case End 10:27:50 Catheter(s) removed without difficulty Radial Compression Device Used. 10 mLs of air placed in BAND, RADIAL COMPRESSION TR SHORT 24 24 CM. Affected 10:27:53 hand 97 % O2 saturation. 10:28:08 No case complications noted. 10:28:17 Cine recording checked. 10:28:19 Bedside Report will be given. 10:28:22 Contrast Scanned 10:28:24 A Left Heart Cath was performed. 10:29:55 DOCU called. Spoke to Pooja. 10:32:29 HR=84 bpm, BMNT=429/90 mmhg, SpO2=97.0 %, Resp=15 B/min, Pain=0, Courtney=10, Lundy=2 10:35:21 Vitals capture stopped. 10:36:[address] [facility] Study - Contrast Media Used In Study Contrast Total Opened (mL) Total Used (mL) Total Wasted (mL) Omnipaque 55 55 0 End Study - Maximum Contrast Load Max Contrast Load (mL) 663.3 End Study - Radiation Exposure Fluoro Time (minutes) 6.4 End Study - Sheaths Sheaths Pulled By Sheath Hold Time (min) Jack Gallardo End Study - Patient Disposition Complications Transferred To Interventional Outcome No Cupola Operator Holding No attempt made
--- NOTE | 2017-03-27 10:39 | CATHPROC ---
[employer] HIS Report Study Information Study Number Admission Scheduled Start Study Start [id number] Mar 27 2017 7:15AM 03/27/2017 Mar 27 2017 9:14AM [place] [facility] Cardiac Catheterization Admit Source Facility Department Other [facility] - Director Treasurer Physician and Clinical Staff Initial Wilfredo Atkins Drum Attendant Sally Barajas,BETH Drum Attendant Boni Robles,RN Recorder Dipika Rowe,RT(R) (BS) Scrub Jack GallardoRT(R) Procedures Performed Procedure Location (Site) Vessel Name Coronary Angiograms LCA Left Coronary Coronary Angiograms RCA Right Coronary L Heart Cath Wire insertion Radial (right) Radial Art. Equipment Time Outside [employer] Advertising Executive Description Size Mfg Part Number Used/Scraped TRANSDUCER, TRUWAVE [id number] 09:15 PORTER TRENT * Used W/STOCKCOCK *[id number] *[id number] [id number] *[id number] 09:15 [employer] PACK, CCL CUSTOM * Used *[id number] 09:15 [employer] SUPPORT, ARTERIAL ADULT 32736 *[id number] Used BAND, RADIAL COMPRESSION TR [id number] 10:26 [employer] MED[employer] 24CM Used SHORT 24 *[id number] 09:15 [employer] MEDICAL WIRE, EXCHANGE 260CM 3MMJ 260CM Used *[id number] 09:15 NAMIC MANIFOLD, 4 PORT * Used *[id number] 09:15 NYCOMED OMNIPAQUE, 350 MG, 150ML 150ML [id number] Used [id number] 09:15 [employer] MEDICAL BLANKET,WARM AIR CCL * Used *[id number] SHEATH, FR6 TRANSRADIAL RM*[id number] 09:15 [employer] FR 6 Used SLENDER 10CM *[id number] 10:05 [employer]OLCAN[employer] PRIME WIRE, VERRATA 185CM 185CM 30674 *[id number] Used 10:13 [employer] PRIME WIRE, VERRATA 185CM 185CM 28965 *[id number] Used Equipment Model, Serial, Lot Number and Expiration Data Description Model Number Serial Number Lot Number Expiration Date PRIME WIRE, VERRATA 185CM [id number] 03-01-2020 History: Current Medications Medication Dosage/Unit Route Frequency Last Date/Time Taken Beta Irma ASA LISINOPRIL History: Allergies Allergy Reaction No Known Allergies History: Risk Factors Family History of Hypertension Dyslipidemia Previous [place] Previous Heart Failure Premature CAD Yes Yes Yes No No Prior Valve Prior PCI Prior CABG Surgery No No No Cerebrovascular Peripheral Artery Chronic Lung On Dialysis Diabetes Disease Disease Disease No No No No No History: Stress Tests Stress or Imaging Studies Performed Yes Standard Exercise Stress Test No Stress Echo No Stress Test SPECT Stress Test SPECT Result Yes Positive Stress Test CMR No Cardiac CTA Coronary Calcium Score No No History: Other Current Smoker No Labs Hgb (g/dl) Hct (%) WBC (l/cumm) Platelets (thousands) 11.60-17.00 35.00-51.00 4.00-11.00 150.00-450.00 13.8 40.8 8.9 333 Glucose (mg/dl) BUN (mg/dl) Creatinine (mg/dl) BUN:Creatinine (1:x) 74.00-106.00 7.00-18.00 0.50-1.30 10.00-20.00 104 10 0.6 16.7 Na (meq/l) K (meq/l) 136.00-145.00 3.50-5.10 134 3.8 INR (PTT:PT) 0.90-1.10 1 CPK-MB (ng/ML) 0.50-3.60 Not Drawn Medication Medication Total Dose (Bolus/Oral) Medication Total Dosage/Unit 1% XYLOCAINE 1 mL FENTANYL 25 mcg HEPARIN 4800 units RADIAL COCKTAIL 1 units VERSED 0.5 mg Medications (Bolus/Oral) Medication Time Given Dosage/Unit Administered By Reason VERSED 03/27/2017 9:47:30 AM 0.5 mg Sally Barajas 0.5 mg VERSED given in lab by Sally Barajas RN in Left Forearm via Peripheral IV. FENTANYL 03/27/2017 9:48:41 AM 25 mcg Sally Barajas 25 mcg FENTANYL given in lab by Sally Barajas, BETH in Left Forearm via Peripheral IV. 1% XYLOCAINE 03/27/2017 9:48:47 AM 1 mL Wilfredo Wilhelm 1 mL 1% XYLOCAINE given in lab by Wilfredo Wilhelm in Right Radial via Subcutaneous. Ntg 200mcg Verapamil 2.5mg Heparin RADIAL COCKTAIL 03/27/2017 9:50:26 AM 1 units Wilfredo Wilhelm 2000U 1 units RADIAL COCKTAIL given in lab by Wilhelm, Vincent G in Right Radial via Radial. Reason: Ntg 2 00mcg Verapamil 2.5mg Heparin 3200U. 03/27/2017 10:05:46 HEPARIN 4800 units Boni Robles AM 4800 units HEPARIN given in lab by Boni Robles RN in Left Forearm via Peripheral IV. Medication (Drip) Medication Time Given Dosage/Unit Concentration/Unit Diluent (ml) Solution 03/27/2017 10:22:26 ADENOSINE DRIP 139.866 mcg/kg/min 90 mg 90 NaCl .9 AM 139.866 mcg/kg/min ADENOSINE DRIP given in lab by Boni Robles RN via Peripheral IV. Pump/Drip Flow = 668 ml/hr using NaCl .9 with a concentration of 90 mg in 90 ml. ADENOSINE DRIP 03/27/2017 10:24:32 0 units/hr 0 STOPPED AM 0 units/hr ADENOSINE DRIP STOPPED given in lab by Boni Robles RN. Pump/Drip Flow = 0 ml/hr using [ Solution Name]. IV Solutions 03/27/2017 9:22:21 AM 0 mL (IV) 500 NaCl .9 IV Solutions given in lab by Sally Barajas RN in Left Forearm via Peripheral IV. Pump/Drip Flow = 100 ml/hr using NaCl .9. Initial Case Assessment Cardiovascular HR Rhythm NIBP Chest Pain 80 reg 138/82 0 Edema Present Skin color Skin None Normal Warm Dry Circulatory - Right Pulses Dorsalis Pedis Femoral 3 3 Scale (0,1,2,3,4,d) Circulatory - Left Pulses Dorsalis Pedis Femoral 3 3 Scale (0,1,2,3,4,d) Circulatory - Lower Extremities Color Lower Right Color Lower Left Normal Normal Neurological State Oriented to time-place- Alert Moves all extremities person Respiration - General Respiration Rate SpO2 (%) (B/min) 8 97 Chronological Log Time Study Chronological Log 9:22:03 Patient arrived via Bed. 9:22:04 Patient Name, D.O.B, / Armband Verified By R.N. 9:22:05 Consent signed by the physician and the patient and verified by the Director Treasurer staff. 9:22:06 Pre-op and post- op instructions given; patient acknowledges understanding of instructions. 9:22:07 Verbal Stimulation=2 Physical Stimulation=2 Airway=2 Respiration=2 TOTAL=8. (0=absent, 1=li mited, 2=present) 9:22:09 Presedation assessment performed by Director Treasurer RN. 9:22:12 Allens test performed on the right radial and ulnar artery per Dr Wilhelm 9:22:15 Patient has been NPO for More than 6Hrs. 9:22:16 Skin Breakdown none per pt 9:22:17 Patient Warmer Placed on the Table. 9:22:20 Aga Prominences Protected 9:22:21 A # 20 IV was noted in the Forearm (left). Grade = 0 IV Solutions given in lab by Sally Barajas, RN in Left Forearm via Peripheral IV. Pump/Drip F low = 100 ml/hr using 9:22:21 NaCl .9. 9:22:22 History and physical on the chart or being dictated. Assessment: Initial Case, HR=80 BPM, Rhythm=reg, FDKX=595/82 mmhg, Chest Pain=0, Edema=None, Co elyse=Normal, Skin = Warm, Dry Right Pulses: Abdiaziz Ped=3, Femoral=3 Left Pulses: Abdiaziz Ped=3, Femoral=3 9:22:23 Lower Right Extremities: Color=Normal Lower Left Extremities: Color=Normal Neurological: State=Alert, Ox3, SABILLON Respiration: Resp=8 B/min, SpO2=97 % Vitals capture started with the following parameters, Patient=Adult, Interval=5 min, Initial Pr gdlyte=244 mmHg, 9:26:56 Deflation Rate=5 mmHg, Cuff placed on Right Arm 9:28:00 IWSZ=584/82 mmhg, SpO2=96.0 %, Pain=0, Courtney=10, Lundy=2 9:32:30 HR=82 bpm, EYSH=258/83 mmhg, SpO2=97.0 %, Resp=16 B/min, Pain=0, Courtney=10, Lundy=2 9:35:09 Bilateral groins prepped with 2% chlorhexidine, and draped after a 3 minute waiting time. 9:37:27 HR=84 bpm, PORI=879/93 mmhg, SpO2=97.0 %, Resp=20 B/min, Pain=0, Courtney=10, Lundy=2 9:39:36 MD paged 9:40:45 MD responded 9:42:30 HR=84 bpm, DJJX=468/81 mmhg, SpO2=94.0 %, Resp=17 B/min, Pain=0, Courtney=10, Lundy=2 9:43:57 Pressure channel 1 zeroed. 9:47:08 Reference ECG taken 9:47:29 HR=83 bpm, URIK=613/80 mmhg, SpO2=93.0 %, Resp=20 B/min, Pain=0, Courtney=10, Lundy=2 9:47:30 0.5 mg VERSED given in lab by Sally Barajas, BETH in Left Forearm via Peripheral IV. Time Out. Correct patient, correct procedure, correct physician, power not loaded with contrast with surgical team 9:47:58 present. Time Out Concurred by MD and individual staff in procedure. 9:48:17 Case Start 9:48:41 25 mcg FENTANYL given in lab by Sally Barajas, BETH in Left Forearm via Peripheral IV. 9:48:47 1 mL 1% XYLOCAINE given in lab by Wilfredo Wilhelm in Right Radial via Subcutaneous. 9:50:01 Access site was right Radial Artery. A SHEATH, FR6 TRANSRADIAL SLENDER 10CM FR 6 was advanced into the Radial (right) using the Perc utaneous 9:50:16 technique. 1 units RADIAL COCKTAIL given in lab by Wilfredo Wilhelm in Right Radial via Radial. Reason: Ntg 200mcg 9:50:26 Verapamil 2.5mg Heparin 3200U. A JR 4.0 INFINITI CATHETER FR 5 was advanced over a wire. OMNIPAQUE, 350 MG, 150ML 150ML was us ed for 9:50:50 injections. Recorded Pressure: LV, HR=90, Condition=Condition 1 9:52:06 (Left Ventricle) LV 115/-1/8 Recorded Pressure: LV, Ao, HR=94, Condition=Condition 1 9:52:20 (Left Ventricle) LV 113/-4/4, (Aorta) Ao 113/62/87 9:52:30 HR=90 bpm, KFEZ=772/76 mmhg, SpO2=92.0 %, Resp=19 B/min, Pain=0, Courtney=10, Lundy=2 Recorded Pressure: Ao, HR=93, Condition=Condition 1 9:53:15 (Aorta) Ao 108/77/92 9:53:22 The RCA was injected and visualized at various angles. OMNIPAQUE, 350 MG, 150ML 150ML used. After removing the current catheter a JL 3.5 INFINITI CATHETER FR 5 was advanced over a WIRE, E XCHANGE 260CM 9:54:41 3MMJ 260CM. 9:55:59 The LCA was injected and visualized at various angles. OMNIPAQUE, 350 MG, 150ML 150ML used. 9:57:27 HR=88 bpm, OIHO=219/77 mmhg, Resp=20 B/min, Pain=0, Courtney=10, Lundy=2 10:02:28 HR=82 bpm, SPPZ=127/78 mmhg, Resp=16 B/min, Pain=0, Courtney=10, Lundy=2 10:04:39 Catheter was removed 10:05:46 4800 units HEPARIN given in lab by Boni Robles, RN in Left Forearm via Peripheral IV. 10:07:29 HR=86 bpm, GRJN=541/86 mmhg, SpO2=98.0 %, Resp=20 B/min, Pain=0, Courtney=10, Lundy=2 10:10:23 A PRIME WIRE, VERRATA 185CM 185CM was inserted via Radial (right). 10:12:28 HR=84 bpm, ZPIG=702/81 mmhg, SpO2=98.0 %, Resp=18 B/min, Pain=0, Courtney=10, Lundy=2 10:17:27 HR=80 bpm, SZCK=264/86 mmhg, SpO2=98.0 %, Resp=19 B/min, Pain=0, Courtney=10, Lundy=2 10:18:20 Flow Wire was was placed in the LAD Mid. The IFR measures 0.91 Percent. 139.866 mcg/kg/min ADENOSINE DRIP given in lab by Boni Robles, RN via Peripheral IV. Pump/Dri p Flow = 668 ml/hr 10:22:26 using NaCl .9 with a concentration of 90 mg in 90 ml. 10:22:33 HR=81 bpm, SAAP=172/84 mmhg, SpO2=99.0 %, Resp=20 B/min, Pain=0, Courtney=10, Lundy=2 10:24:26 Flow Wire was was placed in the LAD Mid. The FFR measures 0.83 percent. 0 units/hr ADENOSINE DRIP STOPPED given in lab by Boni Robles, RN. Pump/Drip Flow = 0 ml/hr u sing [Solution 10:24:32 Name]. 10:25:35 Wire removed 10:26:10 A WIRE, EXCHANGE 260CM 3MMJ 260CM was inserted via Radial (right). 10:26:20 Catheter was removed 10:26:21 Wire removed 10:27:34 HR=89 bpm, RGXG=744/80 mmhg, Resp=23 B/min, Pain=0, Courtney=10, Lundy=2 10:27:40 Case End 10:27:50 Catheter(s) removed without difficulty Radial Compression Device Used. 10 mLs of air placed in BAND, RADIAL COMPRESSION TR SHORT 24 24 CM. Affected 10:27:53 hand 97 % O2 saturation. 10:28:08 No case complications noted. 10:28:17 Cine recording checked. 10:28:19 Bedside Report will be given. 10:28:22 Contrast Scanned 10:28:24 A Left Heart Cath was performed. 10:29:55 DOCU called. Spoke to Pooja. 10:32:29 HR=84 bpm, DMUY=134/90 mmhg, SpO2=97.0 %, Resp=15 B/min, Pain=0, Courtney=10, Lundy=2 10:35:21 Vitals capture stopped. 10:36:50 [facility] Study - Contrast Media Used In Study Contrast Total Opened (mL) Total Used (mL) Total Wasted (mL) Omnipaque 55 55 0 End Study - Maximum Contrast Load Max Contrast Load (mL) 663.3 End Study - Radiation Exposure Fluoro Time (minutes) 6.4 End Study - Sheaths Sheaths Pulled By Sheath Hold Time (min) Jack Gallardo End Study - Patient Disposition Complications Transferred To Interventional Outcome No Director Treasurer Holding No attempt made
[2017-03-27] MEDS ORDERED: MISC INFORMATION XX ONE (11:00)
--- NOTE | 2017-03-27 11:12 | MA ---
cc: JOSE GUADALUPE VARGAS DO DATE OF PROCEDURE March 27, 2017 PROCEDURE Left heart catheterization, coronary angiogram, moderate sedation 40 minutes. PREPROCEDURE DIAGNOSIS Abnormal stress test for preoperative evaluation, shortness of breath, possible ischemic cardiomyopathy. POSTPROCEDURE DIAGNOSIS Mild to moderate coronary artery disease. MEDICATIONS 1. Versed 0.5 mg. 2. Fentanyl 25 mcg. 3. Nitro 200 mcg. 4. Verapamil 2.5 mg. 5. Heparin 8000 units. 6. Adenosine drip for FFR. CONTRAST USED 55 cc. FLUOROSCOPY 6.4 minutes MODERATE SEDATION 40 minutes. ESTIMATED BLOOD LOSS 10 cc. PROCEDURAL SUMMARY Masoud Cosme is a pleasant 71-year-old male who sees my partner Dr. Bauer in the office and was seen for preoperative evaluation. He underwent stress testing and there was concern for inferior and anterior lateral scar which had never been diagnosed before. Because of this he was recommended cardiac catheterization to determine his coronary anatomy and possible intervention if viability is shown in these areas. The risks, benefits and alternatives were explained to him and he consented as such. He was brought to the lab and prepped in the usual sterile fashion. The right radial artery was accessed using a modified Seldinger technique and placement of a 5/6-[place]ath. This was easily aspirated and flushed. A JR-4 was advanced over a J-wire to the ascending aorta and across the aortic valve for measurement of left ventricular pressure. This was pulled back across the aortic valve showing no significant gradient of aortic stenosis. The JR-4 was used for selective angiography of the right coronary artery. This was exchanged out for a JL-3.5 which was used for selective angiography of the left coronary artery. As there was concern for mid-LAD disease that was at least moderate, I felt that this should be further examined with IFR with a plan that if it was showing physiologic stenosis, he would most likely need a viability study to show the anterior wall was viable. [place] wire was advanced into the distal LAD. IFR was measured at 0.9. Because this was borderline, I felt that we should fully evaluate the lesion with adenosine and FFR. Adenosine was started and FFR was 0.83 showing non-physiologic stenosis. The wire was removed. Final angiogram shows no disruption of the coronary anatomy. The JL-3.5 was removed over a J-wire. Radial band was placed over the arteriotomy site for hemostasis. 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 FINDINGS LEFT MAIN: Normal-sized vessel with adequate reflux and no significant disease. It bifurcates into an LAD and circumflex. LAD: Mild luminal irregularities throughout the proximal portion with a 50% lesion in the midportion (IFR 0.9, FFR 0.83). The rest of the LAD has no significant disease. It gives off four small diagonals with no significant disease. LEFT CIRCUMFLEX: Normal-sized vessel with mild tortuosity. There is mild luminal irregularities throughout the midportion. It gives off one major obtuse marginal with no significant disease. RCA: Normal-sized vessel with anterior takeoff. Mild tortuosity throughout the proximal portion. It is a dominant vessel by nature and has a 40% lesion and a small PDA. LVEDP 5. IMPRESSIONS 1. Mild to moderate coronary artery disease. 2. Abnormal stress test showing inferior and anterior lateral infarction although overall this may be a false finding as he has normal flow in the coronaries with no significant occlusions or disease. 3. Preoperative evaluation for shoulder surgery. RECOMMENDATIONS 1. Mr. Cosme has nonobstructive coronary artery disease. 2. He will be discharged home today with a continuation of his medical management. 3. I will have him follow up with Dr. Bauer for consideration of preoperative risk assessment for his shoulder surgery. Thank you for allowing me to see Masoud Cosme. If there are any questions, please do not hesitate to call. Jose Guadalupe Vargas DO VGP/SSB /10:36 AM /10:57 AM
--- NOTE | 2017-03-27 14:45 | EKG ---
Date Performed: 03/27/2017 Time Performed: 08:31:34 PTAGE: 71 years EKG: Sinus rhythm Left axis deviation Left bundle branch block Abnormal ECG NO PREVIOUS TRACING DOCTOR: Radha Ramirez Interpretating Date/Time 03/27/2017 14:43:28
== END 2017-03-27 15:22 | disposition home or self-care (01) ==
LOC: HDOC 07:15 → HDIC 07:16 → HDOC 15:22
PROVIDERS: ATTEND Nuclear Medicine Nuclear Cardiology
DX: I25.10 Atherosclerotic heart disease of native coronary artery without angina pectoris (principal); I44.7 Left bundle-branch block, unspecified; R94.39 Abnormal result of other cardiovascular function study; I11.9 Hypertensive heart disease without heart failure; E78.5 Hyperlipidemia, unspecified
CPT/HCPCS: 80048; 85025; 85610; 85730; 93005; 93458; 93571; 99152; 99153; C1769; C1893; J0153; J1644; J2250; J3010; J7030; Q9967